=== PATIENT | female | born 1945 | race Caucasian/White ===

== ENCOUNTER 2022-05-08 17:14 | Outpatient (CLI) | payer MEDICARE, OTHER, SELFPAY ==
[2022-05-08 18:52] LABS: INR 1.69 (0.91-1.10); Prothrombin Time 20.3 Seconds
== END 2022-05-08 17:15 | disposition home or self-care (01) ==
LOC: LAB 17:26
PROVIDERS: PCP Internal Medicine; Visit Provider Family Medicine
DX: I48.91 Unspecified atrial fibrillation (principal)
CPT/HCPCS: 36415; 85610

== ENCOUNTER 2022-06-05 11:39 | Outpatient (CLI) | payer MEDICARE, OTHER, SELFPAY ==
--- OUTSIDE RECORDS SUMMARY | 2022-06-05 11:41 | XMS_ITS | Clinical Summary ---
:1945 Author Organization [facility] [place] [address] Care Team Providers Name Role Phone Montse Sheffield MD Primary Care Provider Unavailable Allergies Not on File Medications Not on file Active Problems Not on file Family History Medical History Relation Name Comments Cancer-breast Maternal Aunt age 52 Cancer-colon No Family History Cancer-ovarian No Family History Cancer-prostate No Family History Relation Name Status Comments Maternal Aunt Social History Tobacco Use Types Packs/Day Years Used Date Never Assessed Sex Assigned at Date Recorded Not on file Obstetrics History Plan of Treatment Health Maintenance Due Date Last Done Comments Tdap 1957 Depression screening for age 12+ 1958 BMI (ht and wt on same day) for 1964 age 18+ Hepatitis C screening for age 0906/14/1964 18-79 Tetanus booster 1966 Colonoscopy through age 75 1991 Lipids for age 45-75 1991 Mammogram for age 45-75 1991 Zoster (shingles) series for age 0906/14/1996 50+ (1 of 2) DEXA/DXA scan for age 65+ 2011 Medicare Wellness for age 65+ 2011 Pneumococcal series for age 65+ (1 2011 - PCV) Influenza for age 65+ 06/04/2022 COVID-19 vaccine series Completed 01/20/2022, 07/28/2021, 12/20/2020, Additional history exists Results Not on filefrom Last 3 Months Insurance Payer Benefit Plan / Subscriber ID Effective Dates Phone Addre ss Type Group MEDICARE PART A MEDICARE PART A [id number] 2011-Present ATTN: CLAIMS - HB USE ONLY HB ONLY [address] [place] [address] MEDICARE PART B MEDICARE PART B [id number] 2011-Present ATTN: CLAIMS - HB USE ONLY HB ONLY [address] [facility] [place] [address] MEDICA MEDICA PRIME [id number] 2011-Presen [address] [address] [place] [address] MEDICA MR MEDICA PRIME [id number] 2021-Present [address] [address] [place] [address] ([place]) [place] [address] Care Teams Director Supplier Quality Relationship Specialty Start Date End Date Montse Sheffield MD PCP - General Family Practice 12/16/11
[2022-06-05 15:40] LABS: Chloride* 101 mmol/L (96-114)
[2022-06-05 15:41] LABS: Sodium* 138 mmol/L (135-149)
[2022-06-05 15:43] LABS: Creatinine* 0.8 mg/dL (0.5-1.5); Estimated Glomerular Filt Rate 77 ml/min
[2022-06-05 15:44] LABS: Blood Urea Nitrogen* 14 mg/dL (7-30); Calcium* 8.8 mg/dL (8.4-10.6); Carbon Dioxide* 29 mmol/L (20-32); Glucose* 101 mg/dL (60-115)
== END 2022-06-05 11:40 | disposition home or self-care (01) ==
LOC: KYNREF 11:40
PROVIDERS: PCP Internal Medicine; Visit Provider Nurse Practitioner Family
DX: Z79.899 Other long term (current) drug therapy (principal); I82.409 Acute embolism and thrombosis of unspecified deep veins of unspecified lower extremity
CPT/HCPCS: 36415; 80048

== ENCOUNTER 2022-10-30 16:32 | Outpatient (RCR) | payer MEDICARE, OTHER, SELFPAY ==
[2022-10-30 17:10] LABS: INR 1.48 (0.91-1.10); Prothrombin Time 18.8 Seconds
== END 2023-10-03 21:25 | disposition home or self-care (01) ==
LOC: LAB 16:32
PROVIDERS: PCP Internal Medicine; Visit Provider Internal Medicine
DX: Z79.01 Long term (current) use of anticoagulants (principal)
CPT/HCPCS: 36415; 85610

== ENCOUNTER 2023-01-04 07:27 | Outpatient (CLI) | payer MEDICARE, OTHER, SELFPAY ==
--- NOTE | 2023-01-04 07:45 | CRLHL7_ITS ---
For Patients: As a result of the Cures Act, medical imaging exams and procedure reports are released immediately into your electronic medical record. You may view this report before your referring provider. If you have questions, please contact your health care provider. BILATERAL SCREENING MAMMOGRAM WITH COMPUTER-AIDED DETECTION AND TOMOSYNTHESIS TECHNIQUE: CC and MLO views were obtained. These mammographic images have been obtained using full-field digital technique. These mammographic images were interpreted with the benefit of computer-aided detection. Breast Tomosynthesis was used in this interpretation. COMPARISON FILM: 10/28/21, 05/09/20, 01/23/19. FINDINGS: There are scattered areas of fibroglandular density IMPRESSION: There is no radiographic evidence for malignancy. ASSESSMENT: BI-RADS Category 1: Negative RECOMMENDATION: Routine screening mammogram in 1 year. A lay language report of this examination will be provided to the patient. Ethan Hodge M.D. Diagnostic Radiologist [email or web address] DOROTA/kane Transcribed: 2:36 p.mParish middleton/Dictated by: Ethan Hodge MD @ 01/04/2023 8:48:00 AM (Electronically Signed)
== END 2023-01-04 07:28 | disposition home or self-care (01) ==
PROVIDERS: PCP Internal Medicine; Visit Provider Internal Medicine
DX: Z12.31 Encounter for screening mammogram for malignant neoplasm of breast (principal)
CPT/HCPCS: 77063; 77067

== ENCOUNTER 2023-03-26 07:22 | Outpatient (CLI) | payer MEDICARE, OTHER, SELFPAY ==
--- OUTSIDE RECORDS SUMMARY | 2023-03-26 10:48 | XMS_ITS | Continuity of Care Document ---
Author Name Unknown Organization [facility] Address [address] [place] [address] Phone Care Team Providers Care Coin Purse Assembler Name Role Phone Patricio Garcias Unavailable Allergies, Adverse Reactions, Alerts Substance Reaction Status Criticality PENICILLIN Hives Active No Information Medications Medication Instructions Dosage Effective Dates (start - stop) Status Comments oxycodone 5 mg tablet take 1 Tablet by ORAL route every 8-12 hours as needed for pain for G89.18 - Active gabapentin 300 mg capsule take 1 capsule by oral route 3 times every day 300 MG - Active One at night for 3 days then 1 twice daily for 3 days then advance to three times per day prednisone 5 mg tablet Take 20 mg. orally daily X 3 days then 15 mg. daily X 3 days then 10 mg. daily X 3 days then 5 mg. daily X 3 days - Active methocarbamol 750 mg tablet take 1 tablet by ORAL route every 6 hours 750 MG - Active oxycodone 5 mg tablet take 1 - 2 Tablet by ORAL route every 4 - 6 hours as needed for pain for G89.18 5 MG - Active PRAVASTATIN SODIUM (unknown strength) Not Available - Active VITAMIN D2 (unknown strength) Not Available - Active FISH OIL (unknown strength) Not Available - Active WARFARIN SODIUM (unknown strength) Not Available - Active Procedures Procedure Date Postop Followup Visit X-Ray Exam Lower Spine 2-3 Views 2022 POSTOP FOLLOW-UP VISIT Telephone 2022 TLIF - Includes PSF at the same level - DARLYN JENKINS FACETC/FRMT ARTHRD LUM 1 Lami, Facetectomy/Foraminotomy, Lumbar ( Stenosis) Posterior Instrumentation, Non-segmental - PA PEEK/ Cage/ Implant, For Interbody Fusio n - PA Autograft, From Same Incision Pa Assist TLIF - Includes PSF at the same level Ja JENKINS FACETC/FRMT ARTHRD LUM 1 Lami, Facetectomy/Foraminotomy, Lumbar ( Stenosis) Posterior Instrumentation, Non-segmental PEEK/ Cage/ Implant, For Interbody Fusio n Allograft, Morcelized, and/or BMP Autograft, From Same Incision Office/Outpatient Visit,Est, Mod 2021 Office/Outpatient Visit,Est, Mod 2021 Office/Outpatient Visit,New, Mod 2021 Advance Directives Directive Yes / No Effective Date File Name No Information Encounters Encounter Description Practice Location Reason(s) For Visit Diagnoses Date Provider Providers Copied on Encounter [facility], [address], [place], [id number], [place] tel:[phone] GREGORIO Bowman Spondylolisth esis, lumbar regionSpinal stenosis, lumbar region with neurogenic claudication 3 Mariela Curry. [address] [place] [address], [id number] , [place]. tel:[phone] Referring Provider: Isrrael Cannon, [address], [address]. tel:[phone] [facility], [address], [place], [id number], [place] tel:[phone] GREGORIO Back [place] No Information Dec- 3 Mariela Curry. [address] [place] [address], [id number] , [place]. tel:[phone] Referring Provider: Isrrael Cannon[address], [address]. tel:[phone] [facility], [address], [place], [id number], [place] tel:[phone] [facility] No Information 3 Mehbod Amir. [facility], [address] [place] [address] [address], [place], [id number] , [place]. tel:[phone] [facility], [address], [place], [id number], [place] tel:[phone] [facility] No Information 3 Mehbod Amir. [facility], [address] [place] [address], [place], [id number] , [place]. tel:[phone] [facility], [address], [place], [id number], [place] tel:[phone] [facility] No Information 3 Eckroth Patricio. [address] [place] [address] [address], [place], [id number] , [place]. tel: [phone] Referring Provider: Isrrael Cannon, [address], [address]. tel:[phone] [facility], [address], [place], [id number], [place] tel:[phone] [facility] No Information 3 Mehbod Amir. [facility], [address] [place] [address] [address], [place], [id number] , [place]. tel: [phone] [facility], [address], [place], [id number], [place] tel:[phone] [facility] No Information 3 Mehbod Amir. [facility], [address] [place] [address] [address], [place], [id number] , [place]. tel:[phone] Referring Provider: Isrrael Cannon, [facility] & [address], [address]. tel:[phone] Office/Outpat ient Visit,Est, Mod [facility], [address], [place], [id number], [place] tel:[phone] [facility] Spinal stenosis, lumbar region with neurogenic claudicationS pondylolisthe sis, lumbar region 2 Yamilka Lau [facility], [address], [place], [place], [id number] , [place]. tel:[phone] Referring Provider: Isrrael Cannon, [facility] & [address], [address]. tel:[phone] Office/Outpat ient Visit,Est, Mod [facility], [address], [place] [id number], [place] tel:[phone] [facility] Spinal stenosis, lumbar region with neurogenic claudicationS pondylolisthe sis, lumbar region 2 Mariela Curry. [address] [place] [address], [id number] , [place]. tel: [phone] Referring Provider: Isrrael Cannon, [facility] & [address], [address]. tel:[phone] Office/Outpat ient Visit,New, Mod [facility], [address], [place] [id number], [place] tel:[phone] [facility] Spinal stenosis, lumbar region with neurogenic claudicationS pondylolisthe sis, lumbar region 2 Mariela Curry. [address] [place] [address], [id number] , [place]. tel:[phone] Referring Provider: Isrrael Cannon, [facility] & [address], [address]. tel:[phone] Family History Family Member Type Diagnosis Age At Onset No Information Payers Payer name Insurance type Covered libertarian ID Authorhusam baez(s) [employer] Medicare Brandon SHARPE [id number] Social History Type Description Quantity Date Captured Comments Alcohol Use Details Unknown Caffeine Use Details Unknown Tobacco Use Status Current non-smoker Smoking Status Never smoker Non-Smoking Tobacco Use Details : No Details Available : No Details Available Sex Female Vital Signs Date / Time: Height Weight BMI Pulse Rate Blood Pressure Temperature Respiratory Rate Body Surface Area Head Circumference Head Circ. Percentile Wt./Dre. Percentile BMI percentile Pulse Ox Inhaled Ox 11:23 AM 64.50 in 88.451 kg (195.00 lbs) 32.9 5 kg/m eter (2) Chief Complaint And Reason For Visit No Information Reason For Referral Reason For Referral No Information Plan Of Treatment Date Type Action Status Appointment Tamra Choe History Of Present Illness Encounter Date Complaint History Of Prese nt Illness No Information Functional Status Date Functional Assessmen t No Information Instructions Date Instruction Additional Infor mation No Information Assessments Type Assessment Date assessment Spondylolisthesis, lumbar region assessment Spinal stenosis, lumbar region w ith neurogenic claudication Patient Care Teams Name Effective Dates (start - stop) Status Members No Information
== END 2023-03-26 07:23 | disposition home or self-care (01) ==
PROVIDERS: PCP Internal Medicine; Referring Provider Internal Medicine; Visit Provider Internal Medicine
DX: E78.5 Hyperlipidemia, unspecified (principal); M85.80 Other specified disorders of bone density and structure, unspecified site; R73.03 Prediabetes; Z79.01 Long term (current) use of anticoagulants
CPT/HCPCS: 80061; 82306; 82652; 82947

== ENCOUNTER 2023-05-03 11:42 | Outpatient (CLI) | payer MEDICARE, OTHER, SELFPAY ==
--- OUTSIDE RECORDS SUMMARY | 2023-05-05 04:25 | XMS_ITS | Continuity of Care Document ---
Author Name Unknown Organization [facility] Address [address] [place] [address] Phone Care Team Providers Care Electric System Operator Name Role Phone Candace Prather MD Unavailable Unavailable Allergies, Adverse Reactions, Alerts Substance Reaction Status Criticality PENICILLIN Hives Active No Information Medications Medication Instructions Dosage Effective Dates (start - stop) Status Comments WARFARIN SODIUM (unknown strength) Not Available - Active FISH OIL (unknown strength) Not Available - Active VITAMIN D2 (unknown strength) Not Available - Active PRAVASTATIN SODIUM (unknown strength) Not Available - Active oxycodone 5 mg tablet take 1 Tablet by ORAL route every 8-12 hours as needed for pain for G89.18 - No Longer Active methocarbamol 750 mg tablet take 1 tablet by ORAL route every 6 hours 750 MG - No Longer Active prednisone 5 mg tablet Take 20 mg. orally daily X 3 days then 15 mg. daily X 3 days then 10 mg. daily X 3 days then 5 mg. daily X 3 days - No Longer Active gabapentin 300 mg capsule take 1 capsule by oral route 3 times every day 300 MG - No Longer Active One at night for 3 days then 1 twice daily for 3 days then advance to three times per day oxycodone 5 mg tablet take 1 - 2 Tablet by ORAL route every 4 - 6 hours as needed for pain for G89.18 5 MG - No Longer Active Procedures Procedure Date Office/Outpatient Visit,Est, Mod [place]-10- 2023 Postop Followup Visit X-Ray Exam Lower Spine 2-3 Views 2022 POSTOP FOLLOW-UP VISIT Telephone 2022 TLIF - Includes PSF at the same level - PA JENKINS FACETC/FRMT ARTHRD LUM 1 Lami, Facetectomy/Foraminotomy, [...] Morcelized, and/or BMP Autograft, From Same Incision 3 Office/Outpatient Visit,Est, Mod 2021 Office/Outpatient Visit,Est, Mod 2021 Office/Outpatient Visit,New, Mod 2021 Advance Directives Directive Yes / No Effective Date File Name No Information Encounters Encounter Description Practice Location Reason(s) For Visit Diagnoses Date Provider Providers Copied on Encounter Office/Outpat ient Visit,Est, Mod [facility], [address], [place], [id number], [place] tel:[phone] [facility] Encounter for other specified surgical aftercare 3 Yamilka aLu [facility], [address], [facility] [place], [id number] , [place]. tel:[phone] Referring Provider: Isrrael Cannon, [facility] [address] [place] [address], [place], [address]. tel:[phone] [facility], [address], [place], [id number], [place] tel:[phone] [facility] Spondylolisth esis, lumbar regionSpinal stenosis, lumbar region with neurogenic claudication 3 Eckrtomer Patricio. [address], [facility] [place], [id number] , [place]. tel: [phone] Referring Provider: Isrrael Cannon, [facility] & [address], [address]. tel:[phone] [facility], [address], [place], [id number], [place] tel:[phone] [facility] No Information 3 Ecpetartomer Patricio. [address], [facility] [place], [id number] , [place]. tel: [phone] Referring Provider: Isrrael Cannon, [facility] & [address], [address]. tel:[phone] [facility], [address], [place], [id number], [place] tel:[phone] [facility] No Information 3 Mehbod Amir. [facility], [address] [place] [address] [address], [facility] [place], [place], [id number] , [place]. tel: [phone] [facility], [address], [place], [id number], [place] tel:[phone] [facility] No Information 3 Mehbod Amir. [facility], [address] [place] [address] [address], [facility] [place], [id number] , [place]. tel: [phone] [facility], [address], [place], [id number], [place] tel:[phone] [facility] No Information 3 Mariela Curry. [address], [place], [id number] , [place]. tel: [phone] Referring [facility]: [facility] & [address], [address]. tel:[phone] [facility], [address], [place], [id number], [place] tel:[phone] [facility] No Information 3 Mehbod Amir. [facility] [place], [address] [place] [address] [address], [facility] [place], [id number] , [place]. tel:[phone] [facility], [address], [place], [id number], [place] tel:[phone] [facility] No Information 3 Mehbod Amir. [facility], [address] [place] [address] [address], [facility] [place], [id number] , [place]. [phone] Referring Provider: Isrrael Cannon[address], [address]. tel:[phone] Office/Outpat ient Visit,Est, Mod [facility], [address], [place], [id number], [place] tel:[phone] [facility] Spinal stenosis, lumbar region with neurogenic claudicationS pondylolisthe sis, lumbar region 2 Mehbod Amir. [facility], [address] [place] [address] [address], [facility] [place], [id number] , [place]. [phone] Referring Provider: Isrrael Cannon[address], [address]. tel:[phone] Office/Outpat ient Visit,Est, Mod [facility], [address], [place], [id number], [place] tel:[phone] [facility] Spinal stenosis, lumbar region with neurogenic claudicationS pondylolisthe sis, lumbar region 2 Mariela Curry. [address] [place] [address], [place], [id number] , [place]. tel:[phone] Referring Provider: Isrrael Cannon, [facility] & [address], [address]. tel:[phone] Office/Outpat ient Visit,New, Luna [facility], [address], [place], [id number], [place] tel:[phone] [facility] Spinal stenosis, lumbar region with neurogenic claudicationS pondylolisthe sis, lumbar region 2 Elginkrtomer Patricio. [address] [place] [address] [address], [place], [id number] , [place]. [phone] Referring Provider: [facility] & [address], [address]. tel:[phone] Family History Family Member Type Diagnosis Age At Onset No Information Payers Payer name Insurance type Covered democrat ID Authorhusam baez(s) [employer] Brandon [id number] Social History Type Description Quantity Date Captured [...] Percentile BMI percentile Pulse Ox Inhaled Ox 8:41 AM 64.50 in 88.451 kg (195.00 lbs) 32.9 5 kg/m eter (2) Chief Complaint And Reason For Visit No Information Reason For Referral Reason For Referral No Information History Of Present Illness Encounter Date Complaint History Of Prese nt Illness No Information Functional Status Date Functional Assessmen t No Information Instructions Date Instruction Additional Infor mation No Information Assessments Type Assessment Date No Information Patient Care Teams Name Effective Dates (start - stop) Status Members No Information
== END 2023-05-03 11:43 | disposition home or self-care (01) ==
LOC: NFLDREF 05-05 04:23
PROVIDERS: PCP Internal Medicine; Referring Provider Internal Medicine; Visit Provider Internal Medicine
DX: Z79.01 Long term (current) use of anticoagulants (principal)
CPT/HCPCS: 85610

== ENCOUNTER 2023-05-04 08:51 | Day surgery (SDC) | payer MEDICARE, OTHER, SELFPAY ==
[2023-05-04 09:13] VITALS: BMI 34.7
[2023-05-04 09:25] VITALS: BP 123/81; PULSE 64; RESP 16; TEMP 36.7; O2SAT 96
[2023-05-04] MEDS: LACTATED RINGERS 1000 ML 1,000 ML 100 ML IV (09:30)
[2023-05-04] MEDS: SODIUM CHLORIDE 0.9 % (FLUSH) 10 ML SYRINGE IVF (09:30)
[2023-05-04] MEDS: BUPIVACAINE 0.25% 30 ML INJECTION (10:30)
--- NOTE | 2023-05-04 10:42 | P.GSOP_ITS ---
Operative Note Pre-op diagnosis: Skin lesion of the left upper eyelid Post-op diagnosis: Same Type of Procedure: Excision of skin lesion of the left upper eyelid Indications: Patient is a 77-year-old female who presented to clinic with a symptomatic, growing skin lesion of the left upper eyelid. Risks and benefits of excision were discussed at length with the patient. Risks included, but were not limited to: Bleeding, infection, risk of damage to surrounding structures and possible need for additional procedures. All questions and concerns were addressed with patient agreeing to proceed. Procedure Description: After discussing the risks and benefits of the procedure, the patient signed informed consent.? The operative site was marked and the patient was brought to the operating room and placed on the operating table in supine position.? Care was taken to pad the patient's pressure points.?? The patient was then given sedation by anesthesia.?? The operative site was then prepped and draped in the usual sterile fashion.? A time-out was then performed. A mixture of 1% lidocaine and 0.25% Marcaine was used to anesthetize the area. An elliptical incision was made around the skin lesion, which measured 5 mm in size. Dissection was carried down through subcutaneous tissue and the lesion was removed in its entirety. The specimen was then passed off to the back table to be sent to pathology. Hemostasis was assured with electrocautery. The incision measured 1 cm in size and was closed with interrupted 5 0 chromic sutu re. Dermabond was applied to the outside. ? The patient was then woken and transported to the recovery area in stable condition. ? The patient tolerated the procedure well. Findings: Skin lesion of the left upper eyelid. Anesthesia: MAC and local Surgeon: Cordelia Henderson MD Estimated blood loss (mL): 2 Additional Specimen Information: Skin lesion of the left upper eyelid Condition: stable Disposition: same day
[2023-05-04 10:43] VITALS: BP 97/56; PULSE 64; RESP 16; TEMP 36.4; O2SAT 94
[2023-05-04 10:45] VITALS: BP 98/60; PULSE 69; RESP 16; O2SAT 94
--- NOTE | 2023-05-04 10:48 | W.ANESCHARGE ---
Anesthesia Charges Start Date/Time Anesthesia Start Date: 05/04/23 Anesthesia Start Time: 10:18 Stop Date/Time Anesthesia Stop Date: 05/04/23 Anesthesia Stop Time: 10:46
--- NOTE | 2023-05-04 10:59 | W.ANESCHARGE ---
Anesthesia Charges Start Date/Time Anesthesia Start Date: 05/04/23 Anesthesia Start Time: 10:18 Stop Date/Time Anesthesia Stop Date: 05/04/23 Anesthesia Stop Time: 10:46 Summary Extremes of Age - Over 70 or under 1: MDA
[2023-05-04 11:00] VITALS: BP 113/55; PULSE 66; RESP 16; O2SAT 94
[2023-05-04 11:15] VITALS: BP 130/74; PULSE 63; RESP 16; O2SAT 94
== END 2023-05-04 11:44 | disposition home or self-care (01) ==
PROVIDERS: PCP Internal Medicine; Visit Provider Surgery
PROC: (CPT 67840; principal; 2023-05-04 11:15)
DX: H02.9 Unspecified disorder of eyelid (principal)
CPT/HCPCS: 67840; 00140; 00300; 88305; 99100; J0665; J2704; J7120

== ENCOUNTER 2023-10-20 13:44 | Outpatient (CLI) | payer MEDICARE, OTHER, SELFPAY ==
--- NOTE | 2023-10-20 14:00 | XR_ITS ---
Patient: LUIS MCMAHON Facility:?[facility] Patient ID:?[id number] Site Patient ID:?[id number]. Site :?1945 Study:?DEXA-Bone Density DEXA - Hips-10/20/2023 2:43:11 PM Ordering Physician:JANNETH Final Report: DXA BONE MINERAL DENSITY STUDY , 10/20/2023 Current height (in): 5 feet 4 ? inches. Weight (lb): 195. Menopause age: 53. Ethnicity: White. 1. Have you had a previous hip or vertebral fracture? No. 2. Have you had any fractures during your adult life which did not result from significant trauma (e.g., auto accident)? No. 3. Did either of your parents have a hip fracture? No. 4. Do you smoke? No. 5. Have you ever taken Glucocorticoids? No. 6. Do you have rheumatoid arthritis? No. 7. Do you have secondary osteoporosis? No. 8. Do you drink 3 or more alcoholic drinks per day? No. 9. Are you being treated for osteoporosis? No. 10. Have you ever taken any of the following medications: Actonel, Evista, Fosamax, Miacalcin, Reclast, Boniva, Forteo, HRT (i.e. estrogen/hormone therapy), Protelos, Prolia, Vitamin D, Calcium, other ? please specify. ANSWER: Yes, Foxamax, Vitamin D. 11. Do you have any of the following medical conditions: Anorexia or bulimia, asthma or emphysema, end stage renal disease, hyperparathyroidism, any seizure disorders, cancer, inflammatory bowel diseases, hysterectomy, other ? please specify. ANSWER: No. 12. What was your maximum height (inches)? 5 feet 5 inches. 13. Do you perform weight bearing exercise regularly? No. 14. Do you regularly consume dairy products? Yes. 15. Do you drink caffeinated beverages? Yes. If female: 16. At what age did your period start? 16. 17. Are you premenopausal? No. 18. How many full term pregnancies have you had? 4. 19. Have you ever missed your period for more than 6 months in a row (not including or menopause)? No. TECHNIQUE: Bone mineral density study was performed using the [employer]. FINDINGS: The results of the study expressed as bone mineral density (BMD) are as follows: Neck Left: BMD: 0.688 g/cm2. T-score: -1.4 . Z-score: 0.7. Right: BMD: 0.716 g/cm2. T-score: -1.2 . Z-score: 1.0. Total Left: BMD: 0.877 g/cm2. T-score: -0.5 . Z-score: 1.4. Right: BMD: 0.879 g/cm2. T-score: -0.5 . Z-score: 1.4. IMPRESSION: Osteopenia. *Comparison exams done prior to 03/2020 were performed on different unit, Decisyon. COMPARISON: Compared with scan of 01/23/2019, the bone mineral density has increased by 15.7 percent at the hip. Ethan Hodge M.D. Diagnostic Radiologist [email or web address] DOROTA/lory Transcribed: 10:20 a.m. JR/Dictated by: Ethan Hodge MD @ 10/21/2023 12:54:00 PM Signed by:?Ethan Hodge MD @10/22/2023 12:03:21 PM (Electronic Signature)
--- OUTSIDE RECORDS SUMMARY | 2023-10-20 14:05 | XMS_ITS | Clinical Summary ---
Author Name Unknown Organization [facility] Address [place], [place] [address] Care Team Providers Care Special Officer Automat Name Role Phone Melissa Shaffer MD Primary Care Provider [phone] Allergies Active Allergy Reactions Criticality Noted Date Comments Amoxicillin Hives Medium 10/01/2022 Pharmacist completed allergy assessment. Allergy determined to be high-risk. Patient has tolerated amoxicillin prior to most recent administration when reaction occurred. Will likely tolerate cefazolin, ceftriaxone, cefepime as these do not share side chains and risk for cross-reactivity is low. See telephone encounter from pharmacist on 10/01/22. Penicillins Hives 09/15/2022 Pt states augmentin allergy, all PCNs Simvastatin Myalgia 10/01/2022 Venom-Wasp Anaphylaxis High 10/01/2022 Medications Medication Sig Dispensed Refills Start Date End Date Status Fish Oil-[place]-3 Fatty Acids (Fish OiL) 300-500 mg cap Take 1 Capsule by mouth once daily. 0 Active pravastatin (PRAVACHOL) 20 mg tablet Take 10 mg by mouth at bedtime. 0 Active alendronate (FOSAMAX) 35 mg tablet Take 35 mg by mouth once a week in the morning. Take on empty stomach with full glass of water. Do not lie down for 1 hr. 0 Active Cholecalciferol, Vitamin D3, 400 unit capsule Take 400 units by mouth once daily. 0 Active warfarin (COUMADIN) 5 mg tabletIndications:F actor 2, factor V vonLeiden Take by mouth once daily. 5mg alternating with 2.5mg Home INR goal 2.3-2.7 0 Active acetaminophen (TYLENOL EXTRA STRGTH) 500 mg tabletIndications:S derrell stenosis of lumbar region with neurogenic claudication Take 2 Tablets (1,000 mg) by mouth every 6 hours. Max acetaminophen dose: 4000mg in 24 hrs. 30 Tablet 0 10/23/2022 Active methocarbamoL (ROBAXIN) 500 mg tabletIndications:S derrell stenosis of lumbar region with neurogenic claudication Take 1 Tablet (500 mg) by mouth every 6 hours if needed for Muscle Spasm PO 1st choice. 30 Tablet 0 10/23/2022 Active oxyCODONE (ROXICODONE) 5 mg immediate release tabletIndications:S derrell stenosis of lumbar region with neurogenic claudication Take 1 to 2 Tablets (5-10 mg) by mouth every 4 hours if needed for Pain (First choice for severe pain.). 10 Tablet 0 10/23/2022 Active sennosides-docusate (SENOKOT S) (8.6-50 mg) tabletIndications:S derrell stenosis of lumbar region with neurogenic claudication Take 2 Tablets by mouth two times daily. 30 Tablet 1 10/23/2022 Active Active Problems Problem Noted Date Diagnosed Date Spinal stenosis of lumbar re gion with neurogenic claudication 10/20/2022 History of DVT (deep vein thrombosis) 10/20/2022 Hyperlipidemia 10/20/2022 Osteoporosis 10/20/2022 Immunizations Name Administration Dates Next Due Influenza A (H1N1), Inactivated 08/01/2009 Influenza RIV4 (Age 18+ Year s) PRESERV FREE 08/08/2020,08/08/2019 Influenza, High-dose Inactivated 018,09/17/2017,06/25/2016,2013 Influenza, High-dose Quadriv alent Inactivated 08/21/2022,07/16/2021 Influenza, IIV3 (Age 6-35 mos) 08/09/2013,2011,08/07/2009 Influenza, IIV4 08/01/2009 Pneumococcal Poly,23-Valent (Pneumovax) 11/26/2011 Pneumococcal conj 13-Valent (Prevnar 13) 04/13/2016 Td (Age >=7 Years) 10/30/1999, 4,02/21/1988,1979 Tdap 07/29/2022,11/26/2011 Family History Medical History Relation Name Comments Cancer-breast Maternal Aunt age 52 Cancer-colon No Family History Cancer-ovarian No Family History Cancer-prostate No Family History Relation Name Status Comments Maternal Aunt Social History Tobacco Use Types Packs/Day Years Used Date Smoking Tobacco: Former Cigarettes Tobacco Cessation:Counseling Given: Not Answered Alcohol Use Standard Drinks/Week Comments Yes 0 (1 standard drink = 0.6 oz pur e alcohol) a few drinks a month Social Connections Answer Date Recorded Frequency of Communication with Friends and Fami ly Not on file 01/27/2022 Sex and Gender Information Value Date Recorded Sex Assigned at Not on file Gender Identity Not on file Sexual Orientation Not on file Obstetrics History Last Filed Vital Signs Vital Sign Reading Time Taken Comments Blood Pressure 120/66 10/23/2022 8:24 AM MANAGER HEART Pulse 72 10/23/2022 8:24 AM MANAGER HEART Temperature 37.3 ??C (99.2 ??F) 10/23/2022 8:24 AM CS T Respiratory Rate 16 10/23/2022 8:24 AM MANAGER HEART Oxygen Saturation 98% 10/23/2022 8:24 AM MANAGER HEART Inhaled Oxygen Concentration - - Weight 91.9 kg (202 lb 9.6 oz) 10/20/2022 6:45 A M MANAGER HEART Height 163.8 cm (5' 4.5) 10/20/2022 6:45 AM MANAGER HEART Body Mass Index 34.24 10/20/2022 6:45 AM MANAGER HEART Plan of Treatment Health Maintenance Due Date Last Done Comments Depression screening for age 12+ 1958 BMI (ht and wt on same day) for age 18+ 1964 Hepatitis C screening for ag e 18-79 1964 Zoster (shingles) series for age 50+ (1 of 2) 1996 DEXA/DXA scan for age 65+ 2011 Medicare Wellness for age 65+ 2011 COVID-19 vaccine series ( season) 2023 08/25/2022, 01/20/2022, 07/28/2021, Additional history exists Influenza for age 65+ 06/04/2023 08/21/2022 , 07/16/2021, 08/08/2020, Additional history exists Tetanus booster 07/29/2032 07/29/2022, 11/05, 10/30/1999, Additional history exists Pneumococcal series for age 65+ Completed 6, 11/26/2011 Tdap Completed 07/29/2022, 11/26/2011 Medical Devices Implanted Type Area Harness Brusher Device Identifier Shelf Expiration Date Model / Serial / Lot [id number] one Matrix 6cc [place] Dbf Putty Dbm Implanted:Qty: 1 on 10/20/2022 by Candace Prather MD at [facility] N/A: Spine Medtronic Spine/Ortho [id number] / [id number] / Bone 1-4mm 30cc Medtronic Chips Canclls Freeze Dried - [id number] Implanted:Qty: 1 on 10/20/2022 by Candace Prather MD at [facility] N/A: Spine Medtronic Spine/Ortho 07/28/2026 [id number] / [id number] / Spacer Lmbr 25d34or Capstone Tlif Peek - [id number] Implanted:Qty: 1 on 10/20/2022 by Candace Prather MD at [facility] N/A: Spine Medtronic Spine/Ortho 12/21/2027 [id number] / / [id number] Set Screw Lmbr Ant 5.5mm Solera Break Off - [id number] Implanted:Qty: 4 on 10/20/2022 by Candace Prather MD at [facility] N/A: Spine Medtronic Spine/Ortho [id number] / / Maximo Lmbr 35x5.5mm Solera 5.5/6 Cvd Titnm - [id number] Implanted:Qty: 1 on 10/20/2022 by Candace Prather MD at [facility] N/A: Spine Medtronic Spine/Ortho [id number] / / Maximo Lmbr 40x5.5mm Solera 5.5/6 Cvd Titnm - [id number] Implanted:Qty: 1 on 10/20/2022 by Candace Prather MD at [facility] N/A: Spine Medtronic Spine/Ortho [id number] / / Screw Lmbr Post 6.5x50mm Solera 5.5/6 [place] Cocr - [id number] Implanted:Qty: 4 on 10/20/2022 by Candace Prather MD at [facility] N/A: Spine Medtronic Spine/Ortho [id number] / / Advance Directives Documents on File Type Date Recorded Patient Special Education Paraeducator Expl anation Power of Scrap Worker 10/28/1996 10/28/1996 Latest Code Status on File Code Status Date Activated Date Inactivated Comments Full Code 10/20/2022 1:58 PM 10/23/2022 3:03 PM Question Answer Comments Code Status Discussion: Unable to Assess Preferences, Provider to review later Care Teams Special Officer Automat Relationship Specialty Start Date End Date Melissa Shaffer MD [address] [place] [address] PCP - General Internal Medicine 09/17/22
--- OUTSIDE RECORDS SUMMARY | 2023-10-20 14:05 | XMS_ITS | Continuity of Care Document ---
Author Name Unknown Organization [facility] Address [address] [place] [address] Phone Care Team Providers Care Shipyard Painting Supervisor Name Role Phone Candace Prather MD Unavailable [...] [facility], [address], [place], [id number], [place] tel:[phone] [facility] - [facility] Encounter for other specified surgical aftercare 3 Yamilka Lau [facility], [address], [facility] [place], [id number] , [place]. tel:[phone] Referring Provider: Isrrael Cannon, [facility] [address] [place] [address], [place], [address]. tel:[phone] [facility], [address], [place], [id number], [place] tel:[phone] [facility] [place] Spondylolisth esis, lumbar regionSpinal stenosis, lumbar region with neurogenic claudication 3 Eckrtomer Patricio. [address], [facility] [place], [id number] , [place]. tel: [phone] Referring Provider: Isrrael Cannon, [facility] & [address], [address]. tel:[phone] [facility], [address], [place], [id number], [place] tel:[phone] [facility] No Information 3 Ecpetartomer Patricio. [address], [facility] [place], [id number] , [place]. tel: [phone] Referring Provider: Isrrael Cannon, [facility] & [address], [address]. tel:[phone] [facility], [address], [place], [id number], [place] tel:[phone] [facility] No Information 3 Mehbod Amir. [facility], [address] [place] [address] 600, [facility] [place], [place], [id number] , [place]. tel: [phone] [facility], [address], [place], [id number], [place] tel:[phone] [facility] No Information 3 Mehbod Amir. [facility], [address] [place] [address] [address], [facility] [place], [id number] , [place]. tel: [phone] [facility], [address], [place], [place], [id number], [place] tel:[phone] [facility] No Information 3 Mariela Curry. [address], [place], [id number] , [place]. tel: [phone] Referring Provider: [facility] & [address], [address]. tel:[phone] [facility], [address], [place], [address], [place] tel:[phone] [facility] No Information 3 Mehbod Amir. [facility], [address] [place] [address] 600, [facility] [place], [id number] , [place]. tel:[phone] [facility], [address], [place], [id number], [place] tel:[phone] [facility] No Information 3 Mehbod Amir. [facility], [address] [place] [address] 600, [facility] [place], [id number] , [place]. [phone] Referring Provider: Isrrael Cannon[address], [address]. tel:[phone] Office/Outpat ient Visit,Est, Mod [facility], [address], [place], [place], [id number], [place] tel:[phone] [facility] Spinal stenosis, lumbar region with neurogenic claudicationS pondylolisthe sis, lumbar region 2 Mehbod Amir. [facility], [address] [place] [address] 600, [facility] [place], [address] , [place]. [phone] Referring Provider: Isrrael Cannon[address], [address]. tel:[phone] Office/Outpat ient Visit,Est, Mod [facility], [address], [place], [id number], [place] tel:[phone] [facility] Spinal stenosis, lumbar region with neurogenic claudicationS pondylolisthe sis, lumbar region 2 Mariela Curry. [address] [place] [address] [address], [place], [id number] , [place]. tel:[phone] Referring Provider: Isrrael Cannon, [facility] & [address], [address]. tel:[phone] Office/Outpat ient Visit,New, Luna [facility], [address], [place], [id number], [place] tel:[phone] [facility] Spinal stenosis, lumbar region with neurogenic claudicationS pondylolisthe sis, lumbar region 2 Elginkrtomer Patricio. [address] [place] [address] 600, [place], [id number] , [place]. [phone] Referring Provider: [facility] & [address], [address]. tel:[phone] Family History Family Member Type Diagnosis Age At Onset No Information Payers Payer name Insurance type Covered green party ID Authorhusam baez(s) [employer] [place] [id number] Social History Type Description Quantity Date Captured [...]
== END 2023-10-20 13:45 | disposition home or self-care (01) ==
LOC: RAD 13:46
PROVIDERS: PCP Internal Medicine; Visit Provider Internal Medicine
DX: M85.851 Other specified disorders of bone density and structure, right thigh (principal); M85.852 Other specified disorders of bone density and structure, left thigh; M85.859 Other specified disorders of bone density and structure, unspecified thigh
CPT/HCPCS: 77080

== ENCOUNTER 2024-02-03 13:36 | Outpatient (CLI) | payer MEDICARE, OTHER, SELFPAY ==
--- OUTSIDE RECORDS SUMMARY | 2024-02-03 13:40 | XMS_ITS | Clinical Summary ---
Author Name Unknown Organization [facility] Address [place], [place] [address] Care Team Providers Care Jewelry Bearing Maker Name Role Phone Melissa Shaffer MD Primary Care Provider [phone] Allergies Active Allergy Reactions Criticality Noted Date [...] Refills Start Date End Date Status Fish Oil-[place]-3 Fatty Acids (Fish OiL) 300-500 mg cap Take 1 Capsule by mouth once daily. Active pravastatin (PRAVACHOL) 20 mg tablet Take 10 mg by mouth at bedtime. Active alendronate (FOSAMAX) 35 mg tablet Take 35 mg by mouth once a week in the morning. Take on empty stomach with full glass of water. Do not lie down for 1 hr. Active Cholecalciferol, Vitamin D3, 400 unit capsule Take 400 units by mouth once daily. Active warfarin (COUMADIN) 5 mg tabletIndications:F actor 2, factor V vonLeiden Take by mouth once daily. 5mg alternating with 2.5mg Home INR goal 2.3-2.7 Active acetaminophen (TYLENOL EXTRA STRGTH) 500 mg tabletIndications:S derrell stenosis of lumbar region with neurogenic claudication Take 2 Tablets (1,000 mg) by mouth every 6 hours. Max acetaminophen dose: 4000mg in 24 hrs. 30 Tablet 10/23/2022 Active methocarbamoL (ROBAXIN) 500 mg tabletIndications:S derrell stenosis of lumbar region with neurogenic claudication Take 1 Tablet (500 mg) by mouth every 6 hours if needed for Muscle Spasm PO 1st choice. 30 Tablet 10/23/2022 Active oxyCODONE (ROXICODONE) 5 mg immediate release tabletIndications:S derrell stenosis of lumbar region with neurogenic claudication Take 1 to 2 Tablets (5-10 mg) by mouth every 4 hours if needed for Pain (First choice for severe pain.). 10 Tablet 10/23/2022 Active sennosides-docusate (SENOKOT S) (8.6-50 mg) [...] Comments Blood Pressure 120/66 10/23/2022 8:24 AM LOCOMOTIVE OILER Pulse 72 10/23/2022 8:24 AM LOCOMOTIVE OILER Temperature 37.3 ??C (99.2 ??F) 10/23/2022 8:24 AM CS T Respiratory Rate 16 10/23/2022 8:24 AM LOCOMOTIVE OILER Oxygen Saturation 98% 10/23/2022 8:24 AM LOCOMOTIVE OILER Inhaled Oxygen Concentration - - Weight 91.9 kg (202 lb 9.6 oz) 10/20/2022 6:45 A M LOCOMOTIVE OILER Height 163.8 cm (5' 4.5) 10/20/2022 6:45 AM LOCOMOTIVE OILER Body Mass Index 34.24 10/20/2022 6:45 AM LOCOMOTIVE OILER Plan of Treatment Health Maintenance Due Date [...] Additional history exists Influenza for age 65+ 06/04/2024 08/21/2022 , 07/16/2021, 08/08/2020, Additional history exists Tetanus booster 07/29/2032 07/29/2022, 11/05, 10/30/1999, Additional history exists Pneumococcal series for age 65+ Completed 6, 11/26/2011 Tdap Completed 07/29/2022, 11/26/2011 Medical Devices Implanted Type Area Product Ambassador Device Identifier Shelf Expiration Date Model / Serial / Lot [id number] one Matrix 6cc [place] Dbf Putty Dbm Implanted:Qty: 1 on 10/20/2022 by Candace Prather MD at [facility] N/A: Spine Medtronic Spine/Ortho [id number] / [id number] / Bone 1-4mm 30cc Medtronic Chips Canclls Freeze Dried - [id number] Implanted:Qty: 1 on 10/20/2022 by Candace Prather MD at [facility] N/A: Spine Medtronic Spine/Ortho 07/28/2026 [id number] / [id number] / Spacer Lmbr 13q01xu Capstone Tlif Peek - [id number] Implanted:Qty: 1 on 10/20/2022 by Candace Prather MD at [facility] N/A: Spine Medtronic Spine/Ortho 12/21/2027 [id number] / / [id number] Set Screw Lmbr Ant 5.5mm Solera Break Off - [id number] Implanted:Qty: 4 on 10/20/2022 by Candace Prather MD at [facility] N/A: Spine Medtronic Spine/Ortho [id number] / / Maximo Lmbr 35x5.5mm Solera 5.5/6 Cvd Titnm - [id number] Implanted:Qty: 1 on 10/20/2022 by Candace Prather MD at [facility] N/A: Spine Medtronic Spine/Ortho [id number] / / Maximo Lmbr 40x5.5mm Solera 5.5/6 Cvd Titnm - [id number] Implanted:Qty: 1 on 10/20/2022 by Candace Prather MD at [facility] N/A: Spine Medtronic Spine/Ortho [id number] / / Screw Lmbr Post 6.5x50mm Solera 5.5/6 Nh Cocr - [id number] Implanted:Qty: 4 on 10/20/2022 by Candace Prather MD at [facility] N/A: Spine Medtronic Spine/Ortho [id number] / / Advance Directives Documents on File Type Date Recorded Patient Singe Winder Expl anation Power of Geospatial Technologist 10/28/1996 10/28/1996 * Full Code (Latest Code Status on File) Date Activated Date Inactivated Comments 10/20/2022 1:58 PM 10/23/2022 3:03 PM Question Answer Comments Code Status Discussion: Unable to Assess Preferences, Provider to review later Care Teams Jewelry Bearing Maker Relationship Specialty Start Date End Date Melissa Shaffer MD [address] [place], [place] [id number] PCP - General Internal Medicine 09/17/22
--- NOTE | 2024-02-03 14:00 | MM_ITS ---
Patient: LUIS MCMAHON Facility:?[facility] Patient ID:?[id number] Site Patient ID:?[id number]. Site :?1945 Study:?XRay-Breast Bilateral 3D W/CAD-02/03/2024 2:13:12 PM Ordering Physician:Melissa Ordonez Final Report: BILATERAL SCREENING MAMMOGRAM WITH COMPUTER-AIDED DETECTION AND TOMOSYNTHESIS TECHNIQUE: CC and MLO views were obtained. These mammographic images have been obtained using full-field digital technique. These mammographic images were interpreted with the benefit of computer-aided detection. Breast Tomosynthesis was used in this interpretation. COMPARISON FILM: 01/04/23, 10/28/21, 05/09/20. FINDINGS: There are scattered areas of fibroglandular density. IMPRESSION: There is no radiographic evidence for malignancy. ASSESSMENT: BI-RADS Category 1: Negative RECOMMENDATION: Routine screening mammogram in 1 year. A lay language report of this examination will be provided to the patient. Ethan Hodge M.D. Diagnostic Radiologist [email or web address] DSM/sp R& Transcribed: 1:47 p.m. SP/Dictated by: Ethan Hodge MD @ 02/04/2024 11:25:00 AM Signed by:Opal Hodge MD @02/04/2024 2:50:05 PM (Electronic Signature)
== END 2024-02-03 13:37 | disposition home or self-care (01) ==
LOC: MAMMO 13:37
PROVIDERS: PCP Internal Medicine; Visit Provider Internal Medicine
DX: Z12.31 Encounter for screening mammogram for malignant neoplasm of breast (principal)
CPT/HCPCS: 77063; 77067

== ENCOUNTER 2024-09-07 08:40 | Outpatient (CLI) | payer MEDICARE, OTHER, SELFPAY ==
--- OUTSIDE RECORDS SUMMARY | 2024-09-10 15:49 | XMS_ITS | Clinical Summary ---
Author Organization [facility] Address [place], [place] [address] Care Team Providers Care Services Host Name Role Phone Melissa Shaffer MD Primary Care Provider [phone] Allergies Active Allergy Reactions Criticality Noted Date [...] Myalgia 10/01/2022 Venom-Wasp Anaphylaxis High 10/01/2022 Medications Fish Oil-[place]-3 Fatty Acids (Fish OiL) 300-500 mg cap [...] once daily. Active warfarin (COUMADIN) 5 mg tabletIndication s:Factor 2, factor V vonLeiden Take by mouth once daily. 5mg alternating with 2.5mg Home INR goal 2.3-2.7 Active acetaminophen (TYLENOL EXTRA STRGTH) 500 mg tabletIndication s:Spinal stenosis of lumbar region with neurogenic claudication Take 2 Tablets (1,000 mg) by mouth every 6 hours. Max acetaminophen dose: 4000mg in 24 hrs. 30 Tablet 10/23/2022 8:39 AM FREELANCE MAKEUP ARTIST 10/23/19 23 Active methocarbamoL (ROBAXIN) 500 mg tabletIndication s:Spinal stenosis of lumbar region with neurogenic claudication Take 1 Tablet (500 mg) by mouth every 6 hours if needed for Muscle Spasm PO 1st choice. 30 Tablet 10/23/2022 8:39 AM FREELANCE MAKEUP ARTIST 10/23/19 23 Active oxyCODONE (ROXICODONE) 5 mg immediate release tabletIndication s:Spinal stenosis of lumbar region with neurogenic claudication Take 1 to 2 Tablets (5-10 mg) by mouth every 4 hours if needed for Pain (First choice for severe pain.). 10 Tablet 10/23/2022 8:39 AM FREELANCE MAKEUP ARTIST 10/23/19 23 Active sennosides-docus ate (SENOKOT S) (8.6-50 mg) tabletIndication s:Spinal stenosis of lumbar region with neurogenic claudication Take 2 Tablets by mouth two times daily. 30 Tablet 1 10/23/2022 8:39 AM FREELANCE MAKEUP ARTIST 10/23/19 23 Active Active Problems Problem Noted Date Diagnosed [...] and Fami ly Not on file 01/27/2022 Comments No Sex and Gender Information Value Date Recorded Sex Assigned at Not on file Legal Sex Female 8:25 AM FREELANCE MAKEUP ARTIST Gender Identity Not on file Sexual Orientation Not on file Obstetrics History Last Filed Vital Signs Vital Sign Reading Time Taken Comments Blood Pressure 120/66 10/23/2022 8:24 AM FREELANCE MAKEUP ARTIST Pulse 72 10/23/2022 8:24 AM FREELANCE MAKEUP ARTIST Temperature 37.3 C (99.2 F) 10/23/2022 8:24 AM FREELANCE MAKEUP ARTIST Respiratory Rate 16 10/23/2022 8:24 AM FREELANCE MAKEUP ARTIST Oxygen Saturation 98% 10/23/2022 8:24 AM FREELANCE MAKEUP ARTIST Inhaled Oxygen Concentration - - Weight 91.9 kg (202 lb 9.6 oz) 10/20/2022 6:45 A M FREELANCE MAKEUP ARTIST Height 163.8 cm (5' 4.5) 10/20/2022 6:45 AM FREELANCE MAKEUP ARTIST Body Mass Index 34.24 10/20/2022 6:45 AM FREELANCE MAKEUP ARTIST Plan of Treatment Health Maintenance Due Date Last Done Comments Depression screening for age 12+ 1958 BMI (ht and wt on same day) for age 18+ 1964 Hepatitis C screening for ag e 18-79 1964 Zoster (shingles) series for age 50+ (1 of 2) 1996 DEXA/DXA scan for age 65+ 2011 Medicare Wellness for age 65+ 2011 RSV vaccine for adults or (1 - 1-dose 75+ series) 2021 COVID-19 vaccine series ( season) 2024 08/25/2022, 01/20/2022, 07/28/2021, Additional history exists Influenza for age 65+ 06/04/2024 08/21/2022 , 07/16/2021, 08/08/2020, Additional history exists Tetanus booster 07/29/2032 07/29/2022, 11/05, 10/30/1999, Additional history exists Pneumococcal series for age 65+ Completed 6, 11/26/2011 Tdap Completed 07/29/2022, 11/26/2011 Medical Devices Implanted Type Area Project Product Manager Device Identifier Shelf Expiration Date Model / Serial / Lot [id number] one Matrix 6cc [place] Dbf Putty Dbm Implanted:Qty: 1 on 10/20/2022 by Candace Prather MD at [facility] N/A: Spine Medtronic Spine/Ortho [id number] / [id number] / Bone 1-4mm 30cc Medtronic Chips Canclls Freeze Dried - [id number] Implanted:Qty: 1 on 10/20/2022 by Candace Prather MD at [facility] N/A: Spine Medtronic Spine/Ortho 07/28/2026 [id number] / [id number] / Spacer Lmbr 00b06xu Capstone Tlif Peek - [id number] Implanted:Qty: 1 on 10/20/2022 by Candace Prather MD at [facility] N/A: Spine Medtronic Spine/Ortho 12/21/2027 [id number] / / [id number] Set Screw Lmbr Ant 5.5mm Solera Break Off - [id number] Implanted:Qty: 4 on 10/20/2022 by Candace Prather MD at [facility] N/A: Spine Medtronic Spine/Ortho [id number] / / Maximo Lmbr 35x5.5mm Solera 5.5/6 Cvd Titnm - [id number] Implanted:Qty: 1 on 10/20/2022 by Candace Prather MD at [facility] N/A: Spine Medtronic Spine/Ortho [id number] / / Maximo Lmbr 40x5.5mm Solera 5.5/6 Cvd Titnm - [id number] Implanted:Qty: 1 on 10/20/2022 by Candace Prather MD at [facility] N/A: Spine Medtronic Spine/Ortho [id number] / / Screw Lmbr Post 6.5x50mm Solera 5.5/6 Va Cocr - [id number] Implanted:Qty: 4 on 10/20/2022 by Candace Prather MD at [facility] N/A: Spine Medtronic Spine/Ortho [id number] / / Insurance MEDICARE PART B HB ONLY MEDICA PRIME SOLUTION HB MEDICA PRIME [employer] PB ONLY MEDICARE PART A HB ONLY Advance Directives Documents on File Type Date Recorded Patient Chemic Mangler Expl anation Power of Sleep Lab Technician 10/28/1996 10/28/1996 * Full Code (Latest Code Status on File) Date Activated Date Inactivated Comments 10/20/2022 1:58 PM 10/23/2022 3:03 PM Question Answer Comments Code Status Discussion: Unable to Assess Preferences, Provider to review later Care Teams Services Host Relationship Specialty Start Date End Date Melissa Shaffer MD [address] [place] [address] PCP - General Internal Medicine 09/17/22
--- OUTSIDE RECORDS SUMMARY | 2024-09-10 15:49 | XMS_ITS | Continuity of Care Document ---
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 Gun Operator Name Role Phone Yamilka SARABIA, Candace Unavailable Unavailable Allergies, Adverse Reactions, Alerts Substance Reaction Status Criticality PENICILLIN Hives Active No Information Medications Medication Instructions Dosage Effective Dates (start - stop) Status Comments PRAVASTATIN SODIUM (unknown strength) Not Available - Active VITAMIN D2 (unknown strength) Not Available - Active FISH OIL (unknown strength) Not Available - Active WARFARIN SODIUM (unknown strength) Not Available - Active Procedures Procedure Date Office/Outpatient Visit,Est, Low 2023 X-Ray Exam Lower Spine 2-3 Views 2023 Office/Outpatient Visit,Est, Mod 2022 Postop Followup Visit X-Ray Exam Lower Spine [...] on Encounter [facility], [address], [place], [id number], [place] tel:[phone] [facility] No Information 4 Mehbod Amir. [facility], [address] [place] [address] [address], [place], [place], [id number] , [place]. tel:[phone] Office/Outpat ient Visit,Est, Low [facility], [address], [place], [place], [id number], [place] tel:[phone] [facility] Arthrodesis status 4 Mehbod Amir. [facility], [address] [place] [address] [address], [facility] [place], [id number] , [place]. tel:[phone] Referring Provider: [facility] & [address], [address]. tel:[phone] Office/Outpat ient Visit,Est, Mod [facility], [address], [place], [place], [id number], [place] tel:[phone] [facility] Encounter for other specified surgical aftercare 3 Mehbod Amir. [facility], [address] [place] [address] [address], [facility] [place], [id number] , [place]. tel:[phone] Referring Provider: [facility] & [address], [address]. tel:[phone] [facility], [address], [place], [id number], [place] tel:[phone] [facility] Spondylolisth esis, lumbar regionSpinal stenosis, lumbar region with neurogenic claudication 3 Mariela Curry. [address], [place], [place], [id number] , [place]. tel:[phone] Referring Provider: Isrrael Cannon, [facility] & [address], [address]. tel:[phone] [facility], [address], [place], [place], [id number], [place] tel:[phone] [facility] No Information 3 Mariela Curry. [address], [place], [place], [id number] , [place]. tel:[phone] Referring Provider: Isrrael Cannon, [facility] & [address], [address]. tel:[phone] [facility], [address], [place], [place], [id number], [place] tel:[phone] [facility] No Information 3 Mariela Curry. [address], [place], [place], [address] , [place]. tel:[phone] Referring Provider: Isrrael Cannon, [facility] & [address], [address]. tel:[phone] [facility], [address], [place], [place], [id number], [place] tel:[phone] [facility] No Information 3 Yamilka Lau [facility], [address], [place], [place], [id number] , [place]. tel:[phone] Referring Provider: Isrrael Cannon, [address], [address]. tel:[phone] Office/Outpat ient Visit,Est, Mod [facility], [address], [place], [id number], [place] tel:[phone] [facility] Spinal stenosis, lumbar region with neurogenic claudicationS pondylolisthe sis, lumbar region 2 Yamilka Lau [facility], [address], [facility] [place], [id number] , [place]. tel:[phone] Referring Provider: Isrrael Cannon, [facility] & [address], [address]. tel:[phone] Office/Outpat ient Visit,Est, Mod [facility], [address], [place], [id number], [place] tel:[phone] [facility] Spinal stenosis, lumbar region with neurogenic claudicationS pondylolisthe sis, lumbar region 2 Mariela Curry. [address] [place] [address], [place], [place], [id number] , [place]. tel:[phone] Referring Provider: Isrrael Cannon, [facility] & [address], [address]. tel:[phone] Office/Outpat ient Visit,New, Mod [facility], [address], [place], [id number], [place] tel:[phone] [facility] Spinal stenosis, lumbar region with neurogenic claudicationS pondylolisthe sis, lumbar region 2 Mariela Curry. [address] [place] [address], [place], [place], [id number] , [place]. tel:[phone] Referring Provider: Isrrael Cannon, [address], [address]. tel:[phone] Family History Family Member Type Diagnosis Age At Onset No Information Payers Payer name Insurance type Covered green party ID Authoriza tion(s) [employer]am DELL [id number] Social History Type Description Quantity Date Captured Comments Sex Female Smoking Status No Information Chief Complaint And Reason For Visit No [...]
== END 2024-09-07 08:41 | disposition home or self-care (01) ==
LOC: NFLDREF 09-10 15:47
PROVIDERS: PCP Internal Medicine; Referring Provider Internal Medicine; Visit Provider Internal Medicine
DX: E78.5 Hyperlipidemia, unspecified (principal); M85.80 Other specified disorders of bone density and structure, unspecified site; R73.03 Prediabetes
CPT/HCPCS: 80061; 82306; 82947

== ENCOUNTER 2024-10-27 13:00 | Outpatient (RCR) | payer MEDICARE, OTHER, SELFPAY ==
--- NOTE | 2024-10-12 14:00 | PT.OPEX ---
[facility] Outpatient Eval PT [facility] Outpatient Eval Start: 10/12/24 09:27 Freq: Status: Active Protocol: Document 10/12/24 09:27 KARI (Rec: 10/12/24 14:00 KARI [id number]) E-signed By Shamika Soliz PT Physical Therapy Outpatient Evaluation Insurance Information Recert Due Date 01/06/25 Insurance Name Medicare B,[employer] Medical Diagnosis Right cervical radiculopathy Treating Diagnosis Cervicalgia, cervical radiculopathy, postural weakness, limited cervical ROM Referring MD Shaffer Subjective Subjective Tamra reports to PT with primary complaint of right sided neck pain and right sided radicular symptoms. Mostly noting N/T throughout R sided neck, outer arm and across top of hand, not into fingers. 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 She has not done anything yet for this condition. Laying flat on her back without a pillow and arm over her head feels the best. 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 Not extremely limited d/t current symptoms but very noticeable and exhausting to deal with. Also causing disruption in sleep PMH: laminectomy L4/L5, on coumadin and warfarin Pain Comments 5/10 worst Date of Last Physician Visit 09/12/24 Objective Other/Pertinent Objective Cervical ROM: -R Rot: 42 -L Rot: 53 -R Sidebend: 11 -L Sidebend: 16 Forward head and rounded shoulders UE Neurodynamics: -Median Nerve: - -Ulnar Nerve: - -Radial Nerve: - Dermatome/Myotomes (QuickText) : UE Dermatome and Myotome Screen: C5: Sensation diminshed/ Strength Tests Strong C6: Sensation diminished/ Strength Tests Strong C7: Sensation diminished/ Strength Tests Strong C8: Sensation Intact/Strength Tests Strong T1: Sensation Intact/Strength Tests Strong DNF strength: able to hold 5 sec prior to accessory muscle use Palpation: increased tone R UT /levator/R cervical paraspinals Hypomobile L>R mid to upper cervical sideglides Functional Test Performed & Score NDI: 11, 22% Assessment Assessment/Impression Patient is a 79 year old female presenting to physical therapy for evaluation and treatment of R neck pain and radicular symptoms. Patient presents with limited cervical SB/ROT R>L, postural weakness , R sided cervical musculature tightness including UT, levator and paraspinals. These impairments are limiting the patients ability to turn her head to drive, sleep comfortably, care for her /farm work. Patient appears motivated to participate in PT and presents with good prognosis to improve mobility, strength, proprioception and return to functional activities with skilled physical therapy intervention. Plan of Care Rehabilitation Potential Good Physical Therapy Goals In 4 visits: Pt will demonstrate at least 60 deg cervical rotation in order to improve ability to turn her head for ADLs and driving Pt will report 25-50% improvement in radicular symptoms in order to demonstrate functional improvement In 8 visits: Pt will exhibit 10% improvement (or 5 points) in NDI Outcome measure to demonstrate functional improvement and progress towards goals. Pt will report 50-75% improvement in radicular symptoms in order to demonstrate functional improvement Pt will be independent with management of symptoms Treatment Plan/Direct Interventions Ice/Cold/Vasopneumatic,Joint Mobilization,Manual Therapy, Neuromuscular Re-ed,Self-Care/ Home Management,Therapeutic Activities,Therapeutic Exercises Frequency/Duration 1x/wk for 4 weeks with additional 2-4 sessions prn based on progress Patient Will Be Discharged From Therapy Completion of LTG(s), Independent w/HEP, Independently Progressing Evaluation Billing Untimed Code Treatment Minutes 20 Complexity Low Certification Information Initial Certification Date 10/12/24 Ending Certification Date 01/06/25 Provider Signature Required Yes Provider Signature Shows Agreement With POC & Medical Necessity Physician NPI Number Write NPI# Here Physician Comment/Change : Physician Signature & Date Requested Please Sign/Date Here
== END 2025-02-24 23:59 | disposition home or self-care (01) ==
PROVIDERS: PCP Internal Medicine; Visit Provider Internal Medicine
DX: M54.12 Radiculopathy, cervical region (principal); Z51.89 Encounter for other specified aftercare
CPT/HCPCS: 97110; 97140; 97161

== ENCOUNTER 2025-05-03 08:58 | Outpatient (CLI) | payer MEDICARE, OTHER, SELFPAY ==
--- NOTE | 2025-05-03 09:15 | CRLHL7_ITS ---
For Patients: As a result of the Century Cures Act, medical imaging exams and procedure reports are released immediately into your electronic medical record. You may view this report before your referring provider. If you have questions, please contact your health care provider. INDICATION: BILATERAL SCREENING MAMMOGRAM, ASYMPTOMATIC 79 Y/O FEMALE COMPARISON: 02/03/2024, 01/04/2023, 10/28/2021 TECHNIQUE: Digital mammogram in CC and MLO projections including computer-aided detection (CAD) and tomosynthesis. BREAST COMPOSITION: There are scattered areas of fibroglandular density. FINDINGS: No suspicious findings. ASSESSMENT: BI-RADS 1 Negative RECOMMENDATION: Annual screening mammogram. A lay language report of this examination will be provided to the patient. Dictated by: Radha Parker MD @ 05/06/2025 18:43:58 (Electronically Signed)
== END 2025-05-03 08:59 | disposition home or self-care (01) ==
LOC: MAMMO 08:59
PROVIDERS: PCP Internal Medicine; Visit Provider Internal Medicine
DX: Z12.31 Encounter for screening mammogram for malignant neoplasm of breast (principal)
CPT/HCPCS: 77063; 77067